=== PATIENT | female | born 1995 | race Caucasian/White ===

== ENCOUNTER 2020-08-09 12:49 | Outpatient (CLI) | payer SELFPAY ==
[~2020-08-09] VITALS: Ht 153 cm; Wt 58.4 kg
[2020-08-09] VITALS (12 sets, daily range): BP systolic 100–122; BP diastolic 50–68
[2020-08-09] MEDS ORDERED: TERBUTALINE INJ 1 MG/ML (BRETHINE) AMP ONE (13:42)
[2020-08-09] MEDS ORDERED: NS IV 1000 ML 1,000 ML ONE (13:46)
[2020-08-09] MEDS ORDERED: TERBUTALINE INJ 1 MG/ML (BRETHINE) AMP SC ONE ×3 (14:00→16:45)
[2020-08-09] MEDS ORDERED: NS IV 1000 ML 1,000 ML IV ONE (14:00)
[2020-08-09 16:00] LABS: BILIRUBIN,URINE NEGATIVE (NEGATIVE); CLARITY,URINE CLEAR; COLOR,URINE YELLOW; GLUCOSE, URINE (UA) NEGATIVE (NEGATIVE); KETONES,URINE 2+ (NEGATIVE); LEUKOCYTE ESTERASE ,URINE NEGATIVE (NEGATIVE); NITRITE,URINE NEGATIVE (NEGATIVE); PROTEIN,URINE NEGATIVE (NEGATIVE)
[2020-08-09 16:20] LABS: BACTERIA,URINE TRACE /HPF; SQUAMOUS EPITHELIAL CELL,UR RARE /HPF
[2020-08-09] MEDS: NS IV 1000 ML 1,000 ML IV SCH ×2 (16:53→22:19)
[2020-08-09] MEDS ORDERED: morphine INJ 4 MG/ML 1 ML (VIAL/SYRINGE) IM ONE (17:45)
--- NOTE | 2020-08-09 18:54 | Progress Note ---
Subjective Subjective/Events-last exam 24-year-old 2 term 1 previous vaginal presents to women services with uterine cramping. She noticed that in the morning and prompted her to come out. She denied any vaginal bleeding. She has not had any burning on urination Objective Exam Last Set of Vital Signs Vital Signs Date Time Temp Pulse Resp B/P (MAP) Pulse Ox O2 Delivery O2 Flow Rate FiO2 08/09/20 17:30 125 16 103/55 (71) Room Air 08/09/20 16:18 37.7 08/09/20 15:35 100 Capillary Refill : Less Than 3 Seconds General: No Acute Distress Lungs: Clear to Auscultation Heart: Regular Rate Other physical findings cervix: 1 /12 cm (nurse check) Results/Procedures Lab Laboratory Tests 08/09/20 15:45: Urine Color YELLOW, Urine Clarity CLEAR, Urine pH 6.0, Urine Specific [place] 1.010L, Urine Protein NEGATIVE, Urine Glucose (UA) NEGATIVE, Urine Ketones 2+H, Urine Nitrite NEGATIVE, Urine Bilirubin NEGATIVE, Urine Urobilinogen 0.2, Urine Leukocyte Esterase NEGATIVE, Urine RBC (Auto) NEGATIVE, Urine RBC NONE, Urine WBC NONE, Urine Squamous Epithelial Cells RARE, Urine Crystals NONE, Urine Bacteria TRACE, Urine Casts NONE, Urine Mucus NEGATIVE, Urine Culture Indicated NO Assessment/Plan Assessment/Plan Admission Status: Observation Assessment & Plan 1. IUP at 33 weeks 2. labor -NS bolus -SQ terbutaline CECILIA BANG MD August 09, 2020 18:54
[2020-08-09] MEDS ORDERED: BETAMETHASONE ACE/NA PHOS 6 MG/ML (CELESTONE SOLUSPAN) ONE (21:53)
[2020-08-09] MEDS ORDERED: ceFAZolin INJECTION 1,000 MG in WATER (STERILE) FOR INJECTION 10 ML IV SCH (22:00)
[2020-08-09] MEDS ORDERED: BETAMETHASONE ACE/NA PHOS 6 MG/ML (CELESTONE SOLUSPAN) IM SCH (22:00)
[2020-08-09] MEDS ORDERED: fentaNYL INJ 100 MCG/2 ML AMP ONE (22:08)
[2020-08-09] MEDS ORDERED: fentaNYL INJ 100 MCG/2 ML AMP IVP PRN (22:15)
--- NOTE | 2020-08-09 22:17 | Short Stay Summary ---
History of Present Illness History of Present Illness Reason for visit/HPI 24-year-old 2 term 1 is a previous vaginal [facility] presents with uterine contraction. She continues to contract throughout the day despite having fluid bolus, subcu terbutaline x3 as well as morphine 4 mg IM for rest. She has had cervical change from 1 cm to 2 cm. Recently within the last hour she has started to have low-grade fever. She was started on Ancef 1 g every 8 hours early evening. A vaginal swab has been performed as well as urine culture pending. Date of Admission August 09, 2020 Date of Discharge August 09, 2020 Time Seen by Provider: 22:00 Attending Physician Cecilia Bang MD Admitting Physician [facility] Consult Allergies and Home Medications Allergies Coded Allergies: No Known Drug Allergies (Unverified , 08/09/20) Patient Home Medication List Home Medication List Reviewed: Yes Past [id number] Hx Patient Social History Marrital Status: Smoking Status: Never a Smoker Reproductive System Expected Date of Delivery: Sep 26, 2020 Hx : 2 Hx Para: 1 Review of Systems Constitutional: see HPI Physical Exam Vital Signs Vital Signs - First Documented 08/09/20 08/09/20 13:27 14:35 Temp 37.1 Pulse 89 Resp 16 B/P (MAP) 109/59 (76) Pulse Ox 99 O2 Delivery Room Air Capillary Refill : Less Than 3 Seconds Height, Weight, BMI Height: '" Weight: lbs. oz. kg; 24.94 BMI Method: General Appearance: Mild Distress Neck: Supple Respiratory: No Accessory Muscle Use, No Respiratory Distress Gastrointestinal: Tenderness (Mildly tender diffusely over area of uterus. Difficult to say if correlated with contraction) Short Stay Diagnosis Discharge Diagnosis-Short Stay Admission Diagnosis: 1. Intrauterine at 33 weeks gestation 2. labor Final Discharge Diagnosis: 1. Intrauterine at 33 weeks gestation 2. labor Conclusion Labs Laboratory Tests 08/09/20 15:45: Urine Color YELLOW, Urine Clarity CLEAR, Urine pH 6.0, Urine Specific [place] 1.010L, Urine Protein NEGATIVE, Urine Glucose (UA) NEGATIVE, Urine Ketones 2+H, Urine Nitrite NEGATIVE, Urine Bilirubin NEGATIVE, Urine Urobilinogen 0.2, Urine Leukocyte Esterase NEGATIVE, Urine RBC (Auto) NEGATIVE, Urine RBC NONE, Urine WBC NONE, Urine Squamous Epithelial Cells RARE, Urine Crystals NONE, Urine Bacteria TRACE, Urine Casts NONE, Urine Mucus NEGATIVE, Urine Culture Indicated NO Conclusion/Plan Patient to be transferred to [facility] under the care of Dr. Infante. Patient has received betamethasone 12 mg IM. For the trip to [facility] [place] she did receive fentanyl 25 IV for pain control. CECILIA BANG MD August 09, 2020 22:17
[2020-08-09] MEDS ORDERED: MAGNESIUM SULFATE DRIP 500 ML IV ONE (22:28)
[2020-08-09] MEDS ORDERED: MAGNESIUM 4 GM/100 ML IVPB 100 ML IV ONE ×2 (22:28→22:45)
[2020-08-09 22:32] LABS: BASOPHILS % (AUTO) 0 % (0-10); EOSINOPHILS % (AUTO) 0 % (0-10); HEMATOCRIT 34 % (35-52); LYMPHOCYTES # (AUTO) 1.2 10^3/uL (1.0-4.0); LYMPHOCYTES % (AUTO) 7 % (12-44); MEAN CORPUSCULAR HEMOGLOBIN 29 pg (25-34); MEAN CORPUSCULAR HGB CONC 33 g/dL (32-36); MEAN CORPUSCULAR VOLUME 88 fL (80-99); MEAN PLATELET VOLUME 11.3 fL (9.0-12.2); MONOCYTES # (AUTO) 1.6 10^3/uL (0.0-1.0); MONOCYTES % (AUTO) 10 % (0-12); NEUTROPHILS # (AUTO) 13.4 10^3/uL (1.8-7.8); NEUTROPHILS % (AUTO) 82 % (42-75); PLATELET COUNT 183 10^3/uL (130-400); WHITE BLOOD COUNT 16.3 10^3/uL (4.3-11.0)
[2020-08-09] MEDS ORDERED: MAGNESIUM 1 GM/100 ML IVPB 100 ML IV ONE (22:45)
[2020-08-09 22:47] LABS: ALBUMIN 3.2 GM/DL (3.2-4.5); CHLORIDE 109 MMOL/L (98-107); POTASSIUM 3.3 MMOL/L (3.6-5.0); SODIUM 138 MMOL/L (135-145)
[2020-08-09 22:49] LABS: CALCIUM 8.3 MG/DL (8.5-10.1)
[2020-08-09 22:50] LABS: GLUCOSE 102 MG/DL (70-105); TOTAL PROTEIN 6.4 GM/DL (6.4-8.2)
[2020-08-09 22:51] LABS: BILIRUBIN,TOTAL 0.7 MG/DL (0.1-1.0); CARBON DIOXIDE 19 MMOL/L (21-32)
[2020-08-09 22:53] LABS: ALKALINE PHOSPHATASE 128 U/L (40-136); BAND NEUTROPHILS 6 %; CREATININE SERUM 0.63 MG/DL (0.60-1.30); GFR ESTIMATED > 60; LYMPHOCYTES % (MANUAL) 6 %; MONOCYTES % (MANUAL) 4 %; NEUTROPHILS % (MANUAL) 84 %; RBC MORPH NORMAL; TOXIC GRANULATION/VACUOLAZATIO 1+
[2020-08-09 22:54] LABS: BUN/CREATININE RATIO 8
[2020-08-09 22:56] LABS: ALANINE AMINOTRANSFERASE 17 U/L (0-55)
== END 2020-08-09 23:30 | disposition other institution (70) ==
LOC: LDRP 12:49 → WSo 12:49
PROVIDERS: ATTEND Family Medicine
DX: O62.9 Abnormality of forces of labor, unspecified (principal); Z3A.00 Weeks of gestation of pregnancy not specified
CPT/HCPCS: 36415; 80053; 81000; 85007; 85027; 87070; 87205

== ENCOUNTER 2020-09-18 09:51 | Inpatient (IN) | payer OTHER ==
[2020-09-18] VITALS (19 sets, daily range): BP systolic 97–121; BP diastolic 56–75
--- NOTE | 2020-09-18 11:24 | History & Physical-OB ---
OB - Chief Complaint & HPI Date/Time Date of Admission: Date of Admission: Date seen by a Provider: Sep 18, 2020 Time Seen by a Provider: 11:45 Chief Complaint/History OB-Reason for Admission/Chief: Onset of Labor Hx : 2 Expected Date of Delivery: Sep 26, 2020 Gestational Age in Weeks: 38 Gestational Age in Days: 6 Admission Nurse Assessment Rev: Yes History of Labs GBS negative Allergies and Home Medications Allergies Coded Allergies: No Known Drug Allergies (Unverified , 08/09/20) Patient Home Medication List Home Medication List Reviewed: Yes OB - History Hx of Present Care: Yes Ultrasounds: Normal mid trimester US Obstetrical Complications: None Medical Complications: None Patient Past Medical History no chronic medical problems OB - Admission Exam Physical Exam HEENT: Moist Membranes Heart: Rhythm Normal Lungs: Clear Abdomen: Gravid Cervical Dilatation: 5cm Effacement: 75% Station: -2 Membranes: Intact Heart Rate: 130's Accelerations: Accelerations Present Decelerations: Variable Decelerations Trade Show Manager Variability: Average (6-25) Contractions on Admission: < 5 Minutes Apart Intensity: Moderate OB - Assessment/Plan/Diagnosis Assessment Assessment: active labor Admission Dx IUP at term 38 weeks in labor Admission Status: Inpatient Order (span 2 midnights) Reason for Inpatient Admission: L&D Plan Plan: Expectant Management CECILIA BANG MD Sep 18, 2020 11:24
[2020-09-18] MEDS ORDERED: OXYTOCIN PRE-MIX DRIP 500 ML IV ONE (11:36)
[2020-09-18 12:14] LABS: BASOPHILS % (AUTO) 0 % (0-10); EOSINOPHILS # (AUTO) 0.1 10^3/uL (0.0-0.3); EOSINOPHILS % (AUTO) 0 % (0-10); HEMATOCRIT 38 % (35-52); HEMOGLOBIN 12.5 g/dL (11.5-16.0); LYMPHOCYTES # (AUTO) 2.2 10^3/uL (1.0-4.0); LYMPHOCYTES % (AUTO) 13 % (12-44); MEAN CORPUSCULAR HEMOGLOBIN 29 pg (25-34); MEAN CORPUSCULAR HGB CONC 33 g/dL (32-36); MEAN CORPUSCULAR VOLUME 87 fL (80-99); MEAN PLATELET VOLUME 12.1 fL (9.0-12.2); MONOCYTES # (AUTO) 1.5 10^3/uL (0.0-1.0); MONOCYTES % (AUTO) 9 % (0-12); NEUTROPHILS # (AUTO) 12.3 10^3/uL (1.8-7.8); NEUTROPHILS % (AUTO) 76 % (42-75); PLATELET COUNT 197 10^3/uL (130-400); WHITE BLOOD COUNT 16.2 10^3/uL (4.3-11.0)
[2020-09-18] MEDS ORDERED: D5 LR IV SOLUTION 1,000 ML IV SCH (12:15)
[2020-09-18] MEDS ORDERED: MINERAL OIL CONCENTRATE 99.9% 15 ML UDC TOP PRN (12:15)
[2020-09-18] MEDS ORDERED: PREN-37 PO (12:36)
[2020-09-18] MEDS ORDERED: BENZOCAINE/MENTHOL (DERMOPLAST) 56 ML CAN TP PRN (13:15)
[2020-09-18] MEDS ORDERED: TETANUS,DIPTH,PERTUSS P/F (BOOSTRIX) 0.5 ML VIAL IM ONE (13:15)
[2020-09-18] MEDS ORDERED: OXYTOCIN PRE-MIX DRIP 500 ML IV SCH (13:15)
[2020-09-18] MEDS ORDERED: MEASLES,MUMPS,RUBELLA 1 EA INJ SQ ONE (13:15)
[2020-09-18] MEDS ORDERED: WITCH HAZEL(TUCKS) 40 EA JAR TOP PRN (13:15)
--- NOTE | 2020-09-18 13:15 | OB Labor & Delivery Record ---
L&D History Date of Service Date of Service: Sep 18, 2020 History Expected Date of Delivery: Sep 26, 2020 Gestational Age in Weeks: 38 Hx : 2 Hx Para: 2 Complications Events: Routine care Operative Indications (Cesarea: N/A-Vaginal Delivery Intrapartal Events: None L&D Stage1 Stage One Onset of Labor - Date: Sep 18, 2020 Onset of Labor - Time: 04:00 Monitors and Tracing Monitor Accelerations: Uniform Monitor Decelerations: Variable Long-Term Variability: Average (6-10) Short Term Variability: Present Presentation: Vertex Signs of Distress by FHT Signs of Distress no Rupture of Membranes Spontaneous Ruture of Membrane: No Amniotic Membrane Rupture Time: 11:30 Amniotic Membrane Fluid Desc.: Clear L&D Stage2 Stage Two Stage II Date: Sep 18, 2020 Stage II Time: 12:58 Monitors and Tracing Monitor Mode: Internal Monitor Accelerations: Uniform Monitor Decelerations: Variable Long-Term Variability: Average (6-10) Short Term Variability: Present Position: Right Occiput Anterior Presentation: Vertex Signs of Distress by FHT Signs of Distress no Cord Descript/Complications Cord Vessel Description: 3 Vessels Delivery Type Delivery Method: Spontaneous Vaginal Anterior Shoulder: Right Episiotomy/Perineal Laceration Laceraction(s)/Extensions: No Condition of Infant Delivery 1 minute Comment: 9 5 minute Comment: 9 Condition of Infant Condition of Infant: Living Exam: No Observed Abnormalities Resuscitation Resuscitation: N/A - Spontaneous Resp L&D Stage3 Stage Three Stage III Date: Sep 18, 2020 Stage III Time: 13:03 Placenta Delivery Placenta Delivery: Spontaneous Delivery Summary Summary Estimated blood loss (mL): 200 Attending at delivery: Silvia Solorio Condition of Delivery Examined: Cervix Examined Post Hemorrhage: No Intervention Required none CECILIA BANG MD Sep 18, 2020 13:15
[2020-09-18] MEDS ORDERED: CATHETER FLUSH 10 ML SYR IV SCH (14:00)
[2020-09-18] MEDS: IBUPROFEN 600 MG (MOTRIN) TAB PO SCH ×2 (16:02→21:39)
[2020-09-18] MEDS: ACETAMINOPHEN 500 MG TAB (TYLENOL) PO SCH (18:44)
[2020-09-18] MEDS: DOCUSATE SODIUM 100 MG (COLACE) CAP PO SCH (21:39)
[2020-09-18] MEDS: CATHETER FLUSH 10 ML SYR IV SCH (21:40)
[2020-09-19] MEDS: ACETAMINOPHEN 500 MG TAB (TYLENOL) PO SCH ×3 (00:13→12:55)
[2020-09-19 00:14] VITALS: BP 99/55
[2020-09-19 03:29] VITALS: BP 93/55
[2020-09-19] MEDS: IBUPROFEN 600 MG (MOTRIN) TAB PO SCH ×3 (03:29→15:06)
[2020-09-19] MEDS: CATHETER FLUSH 10 ML SYR IV SCH (05:48)
[2020-09-19 06:03] LABS: BASOPHILS % (AUTO) 0 % (0-10); EOSINOPHILS # (AUTO) 0.1 10^3/uL (0.0-0.3); EOSINOPHILS % (AUTO) 0 % (0-10); HEMATOCRIT 32 % (35-52); HEMOGLOBIN 10.3 g/dL (11.5-16.0); LYMPHOCYTES % (AUTO) 22 % (12-44); MEAN CORPUSCULAR HEMOGLOBIN 29 pg (25-34); MEAN CORPUSCULAR HGB CONC 32 g/dL (32-36); MEAN CORPUSCULAR VOLUME 89 fL (80-99); MEAN PLATELET VOLUME 12.1 fL (9.0-12.2); MONOCYTES # (AUTO) 0.9 10^3/uL (0.0-1.0); MONOCYTES % (AUTO) 7 % (0-12); NEUTROPHILS # (AUTO) 9.7 10^3/uL (1.8-7.8); NEUTROPHILS % (AUTO) 70 % (42-75); PLATELET COUNT 162 10^3/uL (130-400); WHITE BLOOD COUNT 13.8 10^3/uL (4.3-11.0)
--- NOTE | 2020-09-19 07:33 | Discharge Summary ---
Diagnosis/Chief Complaint Date of Admission Sep 18, 2020 at 11:26 Date of Discharge September 19, 2020 Admission Diagnosis Admission Diagnosis 1. Intrauterine at 38 weeks 6 days gestation Discharge Diagnosis 1. Intrauterine at 38 weeks 6 days gestation 2. Mild anemia from blood loss at delivery Chief Complaint/HPI Chief Complaint/HPI 24-year-old 2 now T2 initially presented to labor and delivery during the late morning of September 18, 2020 in active labor. Her due date was noted to be at September 26, 2020. GBS status negative. Her care was essentially unremarkable through [facility]. Discharge Summary-OBS Procedures 1. Spontaneous vaginal delivery Discharge Physical Examination Allergies: Coded Allergies: No Known Drug Allergies (Unverified , 08/09/20) Vitals & I&Os Intake and Output 09/19/20 00:00 Intake Total 500 ml Balance 500 ml Vital Sign - Last 12Hours Date Time Temp Pulse Resp B/P (MAP) Pulse Ox O2 Delivery O2 Flow Rate FiO2 09/19/20 03:29 36.1 62 18 93/55 (68) 98 Room Air General Appearance: Alert, No Acute Distress Respiratory: Clear to Auscultation Cardiovascular: Regular Rate Abdominal: Soft (with uterus firm) Hospital Course Was the Problem List Reviewed?: Yes patient was admitted during the morning of September 18, 2020 in active labor. She did not request epidural and she did not desire to have any IV pain medications. On presentation she was 5 cm dilated. She ultimately underwent amniotomy with clear fluid noted. She continued to contract and ultimately delivered a term viable male with Apgars of 9 at 1 minute and 9 at 5 minutes. Infants weight was noted be 6 lbs. 4 oz. There is no episiotomy and she had a very mild perineal abrasion that was not repaired. Following delivery she underwent routine care orders. She had no complications during the remainder of hospital stay. She was noted to have hemoglobin in the morning of September 19 of 10.3 and this was compared to admission of 12.5. She tolerated regular diet. She was without any shortness of breath or leg pain. She was ready for dismissal during the afternoon of September 19, 2020. Labs Laboratory Tests 09/18/20 10:40: White Blood Count 16.2H, Red Blood Count 4.34, Hemoglobin 12.5, Hematocrit 38, Mean Corpuscular Volume 87, Mean Corpuscular Hemoglobin 29, Mean Corpuscular Hemoglobin Concent 33, Red Cell Distribution Width 14.1, Platelet Count 197, Mean Platelet Volume 12.1, Immature Granulocyte % (Auto) 1, Neutrophils (%) (Auto) 76H, Lymphocytes (%) (Auto) 13, Monocytes (%) (Auto) 9, Eosinophils (%) (Auto) 0, Basophils (%) (Auto) 0, Neutrophils # (Auto) 12.3H, Lymphocytes # (Auto) 2.2, Monocytes # (Auto) 1.5H, Eosinophils # (Auto) 0.1, Basophils # (Auto) 0.0, Immature Granulocyte # (Auto) 0.1 09/19/20 05:29: White Blood Count 13.8H, Red Blood Count 3.61L, Hemoglobin 10.3L, Hematocrit 32L , Mean Corpuscular Volume 89, Mean Corpuscular Hemoglobin 29, Mean Corpuscular Hemoglobin Concent 32, Red Cell Distribution Width 14.5, Platelet Count 162, Mean Platelet Volume 12.1, Immature Granulocyte % (Auto) 1, Neutrophils (%) (Auto) 70, Lymphocytes (%) (Auto) 22, Monocytes (%) (Auto) 7, Eosinophils (%) (Auto) 0, Basophils (%) (Auto) 0, Neutrophils # (Auto) 9.7H, Lymphocytes # (Auto) 3.0, Monocytes # (Auto) 0.9, Eosinophils # (Auto) 0.1, Basophils # (Auto) 0.0, Immature Granulocyte # (Auto) 0.1 Discharge Instructions to patient/family Please see electronic discharge instructions given to patient. Discharge Medications Reviewed and agree with Discharge Medication list on patient's Discharge Instruction sheet CECILIA BANG MD Sep 19, 2020 07:33
--- NOTE | 2020-09-19 07:35 | Discharge Inst-Women's Service ---
Discharge Inst-Women's Serv Depart Medication/Instructions New, Converted or Re-Newed RX: Other Instructions may have ibuprofen [id number] 200 mg tablets at 2 or 3 every 6 hours if needed for cramps. Problems Reviewed?: Yes Consults/Follow Up Additional Follow Up: Yes (Dr. Bang at [facility] in 6 weeks) Activity Activity: Activity as Tolerated Driving Instructions: No Driving for 1 Week Nothing Inside Vagina: No [place] (for 6 weeks) Diet Discharge Diet: Regular Diet Return to The Hospital For: as below Symptoms to Report to : Bleeding Excessive, Pain Increased, Fever Over 101 Degrees F, Vaginal Discharge Foul For Any Problems or Questions: Contact Your Physician CECILIA BANG MD Sep 19, 2020 07:35
[2020-09-19 09:15] VITALS: BP 96/51
[2020-09-19] MEDS: DOCUSATE SODIUM 100 MG (COLACE) CAP PO SCH (09:29)
[2020-09-19 12:50] VITALS: BP 98/55
[2020-09-19 17:35] VITALS: BP 98/55
== END 2020-09-19 17:35 | disposition home or self-care (01) | DRG 806 ==
LOC: WSo 09:51 → LDRP 09:51 → WSo 11:26 → LDRP 11:26
PROVIDERS: ADMIT Family Medicine; ATTEND Family Medicine
PROC: 10E0XZZ Delivery of Products of Conception, External Approach (ICD-10-PCS; principal; 2020-09-18)
DX: O90.81 Anemia of the puerperium (principal); D62 Acute posthemorrhagic anemia; Z37.0 Single live birth
CPT/HCPCS: 36415; 85025; 86850; 86900; 86901; 99212